=== PATIENT | male | born 2000 | race Native Hawaiian/Other Pacific Islander ===

== ENCOUNTER 2019-02-02 08:29 | Emergency (ER) | payer OTHER ==
[2019-02-02 08:48] VITALS: BP 158/43
--- NOTE | 2019-02-02 09:27 | XRAY Report ---
Reason: injury Procedure Date: 02/02/2019 Accession Number: [id number] / [id number] Procedure: XR - Ankle 3 View LT CPT Code: FULL RESULT: EXAM: LEFT ANKLE RADIOGRAPHY EXAM DATE: 02/02/2019 09:01 AM. CLINICAL HISTORY: Injury. COMPARISON: None. TECHNIQUE: 3 views. FINDINGS: Bones: Tiny ossicle inferior to the lateral malleolus. Os trigonum. Joints: No dislocation. Symmetric mortise. Preserved tibiotalar joint. Possible tibiotalar effusion. Soft Tissues: Ankle swelling, greatest laterally IMPRESSION: 1. Tiny ossicle seen inferior to the lateral malleolus, may be sequela of age indeterminate trauma. 2. Possible tibiotalar effusion. 3. Ankle swelling, greatest laterally RADIA
--- NOTE | 2019-02-02 11:23 | ED Physician Documentation ---
PD HPI LOWER EXT INJURY - Stated complaint Stated Complaint: ANKLE INJURY - Chief complaint Chief Complaint: Ext Problem - History obtained from History obtained from: Patient - History of Present Illness PD HPI LOW EXT INJURY LOCATION: Left, Ankle Type of injury: Twist Where injury occurred: Other (gym) Timing - onset: Last night Timing - duration: Hours Timing - details: Abrupt onset, Still present Improved by: Rest, Ice, Immobilization Worsened by: Moving, Palpating Associated symptoms: Swelling. No: Weakness, Numbness Similar symptoms before: Has not had sx before Recently seen: Not recently seen - Additional information Additional information: 18-year-old male was playing basketball he jumped up and when he came down his left ankle twisted underneath him and he has pain to the lateral aspect of the ankle. He is using crutches for ambulation and he is iced this last night. Review of Systems Constitutional: denies: Fever Respiratory: denies: Cough GI: denies: Vomiting PD PAST MEDICAL HISTORY - Present Medications Home Medications: Ambulatory Orders Medication Instructions Recorded Confirmed No Known Home Medications 02/02/19 02/02/19 - Allergies Allergies/Adverse Reactions: Allergies Allergy/AdvReac Type Severity Reaction Status Date / Time No Known Drug Allergies Allergy Verified 02/02/19 08:48 - Social History Does the pt smoke?: No Smoking Status: Never smoker PD ED PE NORMAL - Vitals Vital signs reviewed: Yes (hypertensive ) - General General: Alert and oriented X 3, No acute distress, Well developed/nourished - HEENT HEENT: Atraumatic, PERRL, EOMI - Respiratory Respiratory: No respiratory distress - Derm Derm: Normal color, Warm and dry, No rash - Extremities Extremities: Other (There is swelling and point tenderness to the lateral malleolus and not to the proximal 5th. The distal n/v is intact. ) - Neuro Neuro: Alert and oriented X 3, geophysical operator 2-12 intact, No motor deficit, No sensory def icit, Normal speech Eye Opening: Spontaneous Motor: Obeys Commands Verbal: Oriented GCS Score: 15 - Psych Psych: Normal mood, Normal affect Results - Vitals Vitals: Vital Signs - 24 hr 02/02/19 08:47 Temperature 36.9 C Heart Rate 83 Respiratory 20 Rate Blood Pressure 158/43 H O2 Saturation 97 Oxygen O2 Source Room air - Rads (name of study) ankle Radiology: Prelim report reviewed (Impression: 1. Tiny ossicle seen inferior to the lateral malleolus, may be sequelae of age indeterminate trauma. Possible tibiotalar effusion. Ankle swelling, greatest laterally.), EMP read indepedently, See rad report Procedures - Splint (location) ankle Splint applied by: Physician Type of splint: Ankle airsplint Other: Patient tolerated well, No complications, Neurovascular intact, Good alignment, Crutches provided PD MEDICAL DECISION MAKING - ED course Complexity details: reviewed results, re-evaluated patient, considered differential, d/w patient ED course: 18-year-old male with a sprained left ankle is placed into an Aircast. Departure - Departure Disposition: 01 Home, Self Care Clinical Impression: Ankle sprain Qualifiers: Encounter type: initial encounter Involved ligament of ankle: calcaneofibular ligament Laterality: left Qualified Code(s): S93.412A - Sprain of calcaneofibular ligament of left ankle, initial encounter Condition: Stable Instructions: ED Sprain Ankle W X Ray Follow-Up: SHASHA CRESPO MD [Primary Care Provider] -
== END 2019-02-02 11:32 | disposition home or self-care (01) ==
LOC: ED 08:29
DX: S93.412A Sprain of calcaneofibular ligament of left ankle, initial encounter (principal); X50.1XXA Overexertion from prolonged static or awkward postures, initial encounter; Y93.67 Activity, basketball; Y92.39 Other specified sports and athletic area as the place of occurrence of the external cause
CPT/HCPCS: 99282; 99283